=== PATIENT | male | born 1970 | race Caucasian/White ===

== ENCOUNTER 2016-06-06 16:22 | Emergency (ER) | payer BC ==
[~2016-06-06] VITALS: Ht 182.9 cm; Wt 90.3 kg
[2016-06-06 16:47] VITALS: BP 135/88
== END 2016-06-06 17:19 | disposition home or self-care (01) ==
LOC: ER 16:26
DX: S01.91XA Laceration without foreign body of unspecified part of head, initial encounter (principal); R51 Headache; S61.213A Laceration without foreign body of left middle finger without damage to nail, initial encounter; W22.8XXA Striking against or struck by other objects, initial encounter; Y93.89 Activity, other specified; Y99.8 Other external cause status; Y92.89 Other specified places as the place of occurrence of the external cause
CPT/HCPCS: 12002; 70450

== ENCOUNTER 2018-07-21 17:29 | Emergency (ER) | payer BC ==
[~2018-07-21] VITALS: Ht 182.9 cm; Wt 90.7 kg
[2018-07-21 18:58] LABS: Basophils # (auto) 0.1 uL; Basophils % (auto) 0.7 % (0.0-2.0); Eosinophils # (auto) 0.1 uL; Eosinophils % (auto) 1.4 % (0.0-7.0); Hematocrit 39.9 % (41.0-53.0); Lymphocytes # (auto) 2.1 uL; Lymphocytes % (auto) 26.1 % (10.0-50.0); Mean Corpuscular Hemoglobin 32.1 pg (28.0-32.0); Mean Corpuscular Hgb Conc. 35.1 g/dL (32.0-36.0); Mean Corpuscular Volume 91.3 fL (80.0-100.0); Monocytes # (auto) 0.4 uL; Monocytes % (auto) 5.3 % (0.0-12.0); Neutrophils # (auto) 5.3 uL; Neutrophils % (auto) 66.5 % (37.0-80.0); Nucleated Red Blood Cells % 0.1 %; Platelet Count (auto) 296 10^3/uL (140-450); Red Blood Cells 4.37 10^6/uL (4.5-5.90)
[2018-07-21 19:08] LABS: BUN/Creatinine Ratio 17.8; Potassium 3.6 mmol/L (3.5-5.1)
[2018-07-21 19:09] LABS: Albumin 3.7 g/dL (3.4-5.0); Calcium 8.3 mg/dL (8.5-10.1)
[2018-07-21 19:11] LABS: Bilirubin, Total 0.2 mg/dL (0.2-1.0); Total Protein 7.2 g/dL (6.4-8.2)
[2018-07-21] MEDS ORDERED: cefTRIAXone 1GM/50ML D5W 50 ML IV ONE (19:15)
[2018-07-21] MEDS ORDERED: TETANUS-DIPTH-ACEL PERTUSSIS 0.5ML SYRG IM ONE (19:15)
[2018-07-21 19:35] VITALS: BP 143/83
[2018-07-21] MEDS ORDERED: NEOMYCIN-BACITRACIN-POLYM UNITDOSE PKG TOP OINT TOP ONE (20:45)
[2018-07-21] MEDS ORDERED: LIDOCAINE W/ EPINEPHRINE 1% 20ML VIAL SC ONE (20:45)
== END 2018-07-21 21:15 | disposition home or self-care (01) ==
LOC: ER 17:33
DX: S01.81XA Laceration without foreign body of other part of head, initial encounter (principal); V86.59XA Driver of other special all-terrain or other off-road motor vehicle injured in nontraffic accident, initial encounter; Y93.89 Activity, other specified; Y99.8 Other external cause status; Y92.89 Other specified places as the place of occurrence of the external cause
CPT/HCPCS: 12011; 36415; 70450; 80053; 80320; 85025; 90471; 90715; 96365; 96372; 99284; J0696